=== PATIENT | male | born 1955 | race Caucasian/White ===

== ENCOUNTER 2017-09-09 10:20 | Observation (INO) | payer OTHER ==
[~2017-09-09] VITALS: Ht 175.3 cm; Wt 89.5 kg
[2017-09-09] MEDS ORDERED: AMLODIPINE-BEN1 EAC3 PO (11:08)
[2017-09-09] MEDS ORDERED: TRAMADOL HCL50 MG PO (11:08)
[2017-09-09] MEDS ORDERED: ROSUVASTATIN CA10 MG PO (11:08)
[2017-09-09] MEDS ORDERED: JANUVIA25 M1 PO (11:09)
[2017-09-09 11:23] LABS: CHLORIDE 103 mEq/L (99-109); HEMATOCRIT 41.9 % (38.0-50.0); HEMOGLOBIN 14.4 G/DL (12.5-16.6); MCH 31.2 PG (29.0-34.0); MCHC 34.4 G/DL (30.0-36.0); MCV 90.7 FL (86-99); PLATELET COUNT 192 K/uL (156-360); POTASSIUM 4.9 mEq/L (3.7-5.4); RBC DIS.WIDTH-CV 12.6 % (11.8-14.6); RBC DIS.WIDTH-SD 41.7 % (39-53); RED BLOOD COUNT 4.62 M/uL (4.00-5.50); SODIUM 137 mEq/L (136-147)
[2017-09-09 11:24] LABS: GLUCOSE 220 mg/dL (70-99)
[2017-09-09 11:28] LABS: CREATININE 1.5 mg/dL (0.6-1.3); GFR ESTIMATE (CALCULATED) 50 mL/min/ (58.99-99999)
[2017-09-09 11:29] LABS: UREA NITROGEN (BUN) 26 mg/dL (9-23)
[2017-09-09] MEDS ORDERED: CO Q-1050 MG PO (16:22)
[2017-09-09 17:28] VITALS: BP 147/78
[2017-09-09 18:00] VITALS: BP 146/62
[2017-09-09 20:00] VITALS: BP 142/60
[2017-09-09 20:36] LABS: HEMATOCRIT 38.1 % (38.0-50.0); HEMOGLOBIN 12.9 G/DL (12.5-16.6); MCV 92.3 FL (86-99)
[2017-09-09 23:41] VITALS: BP 135/83
[2017-09-10 06:09] LABS: HEMATOCRIT 40.6 % (38.0-50.0); HEMOGLOBIN 13.5 G/DL (12.5-16.6); MCH 31.1 PG (29.0-34.0); MCHC 33.3 G/DL (30.0-36.0); MCV 93.5 FL (86-99); PLATELET COUNT 158 K/uL (156-360); RBC DIS.WIDTH-CV 12.8 % (11.8-14.6); RBC DIS.WIDTH-SD 44.4 % (39-53); RED BLOOD COUNT 4.34 M/uL (4.00-5.50); WHITE BLOOD COUNT 16.2 K/uL (4.1-10.2)
[2017-09-10 06:43] LABS: CHLORIDE 101 MEQ/L (99-109); CREATININE 1.2 MG/DL (0.6-1.3); GFR ESTIMATE (CALCULATED) > 59 mL/min/ (58.99-99999); GLUCOSE 180 mg/dL (70-99); POTASSIUM 4.2 MEQ/L (3.7-5.4); SODIUM 136 MEQ/L (136-147); UREA NITROGEN (BUN) 18 mg/dL (9-23)
[2017-09-10 08:21] VITALS: BP 132/69
[2017-09-10 11:48] VITALS: BP 126/60
[2017-09-10] MEDS ORDERED: FLAGYL500 MG PO (14:14)
[2017-09-10] MEDS ORDERED: CIPRO500 MG PO (14:14)
== END 2017-09-10 15:07 | disposition home or self-care (01) ==
LOC: EME 10:20 → EDOF 14:39 → CANRESERV 14:57 → ENRESERV 14:57 → 5WEST 17:25
PROVIDERS: Internal Medicine
DX: A09 Infectious gastroenteritis and colitis, unspecified (principal); K55.059 Acute (reversible) ischemia of intestine, part and extent unspecified; E11.9 Type 2 diabetes mellitus without complications; I10 Essential (primary) hypertension; E78.5 Hyperlipidemia, unspecified; K64.8 Other hemorrhoids; N17.9 Acute kidney failure, unspecified; Z87.891 Personal history of nicotine dependence
CPT/HCPCS: 74176; 80048; 82948; 85014; 85018; 85027; 85651; 86850; 86900; 86901; 87040; 87493; 87506; G0378; J0744; J2270; J2405; J7030; S0028; S0030